=== PATIENT | female | born 1975 | race Caucasian/White ===

== ENCOUNTER 2020-02-20 07:49 | Emergency (ER) | payer SELFPAY ==
[~2020-02-20] VITALS: Ht 162.6 cm; Wt 59.0 kg
[2020-02-20 07:59] VITALS: BP 158/115
[2020-02-20 08:47] VITALS: BP 158/115
== END 2020-02-20 08:40 | disposition home or self-care (01) ==
LOC: MED 07:49
DX: B34.9 Viral infection, unspecified (principal); Z20.828 Contact with and (suspected) exposure to other viral communicable diseases; J45.909 Unspecified asthma, uncomplicated; Z98.890 Other specified postprocedural states
CPT/HCPCS: 99283; U0003